=== PATIENT | female | born 1990 | race Caucasian/White ===

== ENCOUNTER 2022-02-08 16:52 | Emergency (ER) | payer SELFPAY ==
[2022-02-08 17:00] VITALS: BP 104/76; PULSE 88; RESP 18; TEMP 36.1; O2SAT 100
--- NOTE | 2022-02-08 17:06 | ED.SKABFB ---
HPI - Skin/Abscess/Foreign Bdy General Chief complaint: Extremity Injury, Lower Stated complaint: Lt Foot Irritation Time Seen by Provider: 02/08/22 17:06 Source: patient and RN notes reviewed Mode of arrival: ambulatory Limitations: no limitations History of Present Illness HPI narrative: 31-year-old female presents to [facility] with complaints of redness and swelling to the medial aspect left great toe. Patient states that she had a pedicure about a week ago and thinks that they nicked the medial aspect of the toe. Has had redness, swelling and drainage over the last 2 days. Has been traveling from the [place] the last 2 days. Denies any signet past medical or surgical. She noticed it about 3 days ago Patient currently breast-feeding 6-month-old baby Related Data Allergies Allergy/AdvReac Type Severity Reaction Status Date / Time No Known Allergies Allergy Verified 02/08/22 17:13 Review of Systems Review of Systems: All systems reviewed & are unremarkable except as noted in HPI and below Constitutional: Constitutional: Reports no additional constitutional complaints, Denies chills and Denies fever(s) Eyes: Eyes: Reports no additional eye complaints ENT: Reports system reviewed and no additional complaints, except as documented Cardiovascular: Cardiovascular: Reports no additional cardiovascular complaints Respiratory: Respiratory: Reports no additional respiratory complaints Gastrointestinal: Gastrointestinal: Reports no additional gastrointestinal complaints Musculoskeletal: Musculoskeletal: Reports no additional musculoskeletal complaints Integumentary/Breasts: Skin/Breast: Reports as per HPI and Reports erythema (Left great toe) Neurologic: Reports system reviewed and no additional complaints, except as documented Psychiatric: Psychiatric: Reports no additional psychiatric complaints Allergic/Immunologic: Allergic/Immunologic: Reports no additional allergic/immunologic complaints [facility] Past Medical History Medical History (Updated 02/08/22 @ 19:33 by Stormy Seymour APRN) No significant medical problems Surgical History Surgical History (Updated 02/08/22 @ 19:33 by Stormy Seymour APRN) No pertinent past surgical history Social History Social History (Updated 02/08/22 @ 19:33 by Stormy Seymour APRN) Living arrangements: with family Gender identity (if verbalized by the patient): Female Comments At the time of my signature, I reviewed and agree with the nursing past medical, surgical, social, and family history. There is no relevant family history pertinent to the patient complaint. Exam Const: General: healthy appearing, no acute distress and alert Nutritional Appearance: well nourished Orientation/consciousness: patient oriented x3 Limitations: no limitations HENMT: Head: normal to inspection Ears: external ears normal Eyes: General: appearance normal, both eyes and all related structures Pupils: Equal, round and reactive pupils present Neck: Neck: normal visual inspection, no lymphadenopathy and no meningeal signs Chest: Chest palpation & inspection: normal inspection of the chest Resp: Effort & Inspection: normal respiratory effort and no use of accessory muscles Auscultation: clear to auscultation bilaterally, no crackles, no rales, no rhonchi and no wheezes Cardio: Rate: regular rate Rhythm: regular rhythm GI: GI Palp: Yes Soft to palpation and No Tenderness to palpation present (GI) Back/Spine/Pelvis: Cervical Spine: normal cervical lordosis Thoracic/Lumbar Spine: thoracic and lumbar spine normal to inspection Skin: General skin exam: normal color Rashes: no rashes Wounds: wounds noted Other: Redness, swelling noted medial aspect right great toe at the distal aspect of toenail. No fluctuance. No drainable areas. Patient reports thick drainage for the last 2 days. Neuro: General: patient oriented x3, moves all extremities, no meningeal signs
== END 2022-02-08 17:18 | disposition home or self-care (01) ==
PROVIDERS: Emergency Provider Nurse Practitioner
DX: L03.032 Cellulitis of left toe (principal)
CPT/HCPCS: 99213; G0463